=== PATIENT | female | born 1985 | race Caucasian/White ===

== ENCOUNTER 2020-09-15 15:59 | Emergency (ER) | payer MEDICAID ==
[~2020-09-15] VITALS: Ht 165.1 cm; Wt 61.4 kg
[~2020-09-15 15:59] MED LIST: CYCL-394 PO; HYDR1TAB PO; IBUP-1984 PO; LEVO1TAB29 PO
[2020-09-15 16:38] VITALS: BP 124/92
== END 2020-09-15 17:18 | disposition home or self-care (01) ==
LOC: ER 15:59
DX: Z02.89 Encounter for other administrative examinations (principal); N18.9 Chronic kidney disease, unspecified; G89.29 Other chronic pain; Z87.440 Personal history of urinary (tract) infections; Z98.890 Other specified postprocedural states; Z88.8 Allergy status to other drugs, medicaments and biological substances; Z88.6 Allergy status to analgesic agent; Z79.899 Other long term (current) drug therapy
CPT/HCPCS: 99281

== ENCOUNTER 2021-04-14 11:31 | Emergency (ER) | payer MEDICAID ==
[~2021-04-14] VITALS: Ht 165.1 cm; Wt 72.7 kg
[2021-04-14 11:53] VITALS: BP 128/92
[2021-04-14] MEDS ORDERED: AZIT500T PO (12:58)
[2021-04-14] MEDS ORDERED: BENZ-38 PO (12:59)
== END 2021-04-14 13:50 | disposition home or self-care (01) ==
LOC: ER 11:32
DX: J06.9 Acute upper respiratory infection, unspecified (principal); Z20.822 Contact with and (suspected) exposure to COVID-19; G89.29 Other chronic pain; M54.9 Dorsalgia, unspecified; N18.9 Chronic kidney disease, unspecified; Z88.6 Allergy status to analgesic agent; Z88.8 Allergy status to other drugs, medicaments and biological substances
CPT/HCPCS: 71045; 87635; 99284; C9803

== ENCOUNTER 2022-06-12 06:27 | Emergency (ER) | payer MEDICAID ==
[~2022-06-12] VITALS: Ht 165.1 cm; Wt 68.2 kg
[2022-06-12] MEDS ORDERED: PRED20TA PO (07:42)
[2022-06-12] MEDS ORDERED: AZIT-83 PO (07:42)
[2022-06-12 07:48] VITALS: BP 129/81
== END 2022-06-12 07:50 | disposition home or self-care (01) ==
LOC: ER 06:27
DX: J20.9 Acute bronchitis, unspecified (principal); N18.9 Chronic kidney disease, unspecified; Z88.5 Allergy status to narcotic agent; Z88.8 Allergy status to other drugs, medicaments and biological substances
CPT/HCPCS: 99283

== ENCOUNTER 2023-03-26 06:21 | Emergency (ER) | payer MEDICAID ==
[~2023-03-26] VITALS: Ht 165.1 cm; Wt 62.3 kg
[2023-03-26 06:29] VITALS: TEMP 97.9
[2023-03-26] MEDS ORDERED: albuterol 2.5 MG/3 ML nebule CONTNEB PRN (07:45)
[2023-03-26] MEDS ORDERED: dexamethasone sod phosphate 10mg/ml inj IV STA (07:45)
[2023-03-26] MEDS ORDERED: ipratropium 0.5 MG/2.5ML nebule IH ONE ×2 (07:45→11:00)
[2023-03-26 08:39] LABS: BASOPHILS % (AUTO) 0.6 % (0-1); EOSINOPHILS # (AUTO) 0.5 X10'3 (0-0.9); HEMATOCRIT 42.3 % (35.0-45.0); HEMOGLOBIN 14.3 g/dl (12.0-16.0); LYMPHOCYTES # (AUTO) 2.5 X10'3 (1.1-4.8); LYMPHOCYTES % (AUTO) 38.5 % (21-51); MEAN CORPUSCULAR HGB CONC 33.7 g/dL (33.0-36.5); MEAN CORPUSCULAR VOLUME 97.8 FL (78-98); MEAN PLATELET VOLUME 7.4 FL (7.4-10.4); MONOCYTES # (AUTO) 0.3 X10'3 (0-0.9); MONOCYTES % (AUTO) 4.4 % (2-12); NEUTROPHILS # (AUTO) 3.2 X10'3 (1.8-7.7); NEUTROPHILS % (AUTO) 49.5 % (42-75); PLATELET COUNT 234 X10'3 (140-440); RED BLOOD COUNT 4.32 X10'6 (4.20-5.60); RED CELL DISTRIBUTION WIDTH 12.8 % (11.5-14.5); WHITE BLOOD COUNT 6.6 X10'3 (4.5-11.0)
[2023-03-26 08:43] VITALS: PULSE 67; RESP 20; O2SAT 98
[2023-03-26 09:04] LABS: ALANINE AMINOTRANSFERASE 24 U/L (12-78); ALBUMIN 3.8 G/DL (3.4-5.0); ALBUMIN/GLOBULIN RATIO 1.3 (1.1-1.5); ALKALINE PHOSPHATASE 68 IU/L (46-116); ANION GAP 9 (8-16); ASPARTATE AMINO TRANSFERASE 22 U/L (10-37); BILIRUBIN,TOTAL 0.3 MG/DL (0.1-1.0); BLOOD UREA NITROGEN 8 MG/DL (7-18); BUN/CREATININE RATIO 12.5 (10.0-20.0); CHLORIDE 105 MMOL/L (99-107); CREATININE 0.64 MG/DL (0.40-0.90); GLUCOSE 100 MG/DL (70-104); POTASSIUM 3.9 MMOL/L (3.5-5.1); PRO BRAIN NATRIURETIC PEPTIDE 57 PG/ML (0-125); SODIUM 140 MMOL/L (135-145); TOTAL CARBON DIOXIDE 26.1 MMOL/L (24-32); TOTAL PROTEIN 6.7 G/DL (6.4-8.2); eCRCL 106 ML/MIN; eGFR > 90 ML/MIN
[2023-03-26] MEDS ORDERED: magnesium 2GM in 50ml NS 50 ML IV ONE (09:15)
[2023-03-26 10:15] VITALS: PULSE 92; RESP 18; O2SAT 99
[2023-03-26 10:49] VITALS: BP 131/78; PULSE 85; RESP 18; O2SAT 99
[2023-03-26] MEDS ORDERED: albuterol 2.5 MG/3 ML nebule NEB ONE (11:00)
--- NOTE | 2023-03-26 11:46 | NUR ---
PT WAS NOT IN ER12, PIV FOUND ON THE FLOOR; PT ELOPED
== END 2023-03-26 11:48 | disposition left against medical advice (07) ==
LOC: ER 06:22
DX: J20.9 Acute bronchitis, unspecified (principal); Z20.822 Contact with and (suspected) exposure to COVID-19; N18.9 Chronic kidney disease, unspecified; Z88.6 Allergy status to analgesic agent; Z88.8 Allergy status to other drugs, medicaments and biological substances
CPT/HCPCS: 36415; 71045; 80053; 83735; 83880; 84484; 85025; 87502; 87503; 87811; 94640; 94644; 96365; 96375; 99285; J1100; J3475; 94760; A7015